=== PATIENT | male | born 1995 | race Caucasian/White ===

== ENCOUNTER 2023-07-23 16:01 | Emergency (ER) | payer OTHER, SELFPAY ==
[2023-07-23 16:13] VITALS: BP 139/73; PULSE 75; RESP 18; TEMP 36.2; O2SAT 94; BMI 30.3
--- NOTE | 2023-07-23 19:46 | ED_ITS ---
HPI - Head Injury General Chief complaint: Head Injury Stated complaint: hid head t-2, lingering headache Time Seen by Provider: 07/23/23 19:21 Source: patient Mode of arrival: ambulatory Limitations: no limitations History of Present Illness HPI Narrative: Patient is a 27-year-old male who presents emergency department for evaluation of an intermittent mild headache. He reports 2 days ago he was putting away gr oceries he bent over and upon standing up he accidentally struck the top of his head on the freezer door. He denies any loss of consciousness. He denies any vision changes, dizziness, lightheadedness, neck pain, chest pain, confusion. Headache is described as mild, 2/10, has been intermittent, has been self- resolving without use of OTC acetaminophen/ibuprofen. He denies use of anticoagulants or known coagulation disorders. He presents emergency department today by advisement of a co-worker to assure there is no serious injury. Related Data Allergies Allergy/AdvReac Type Severity Reaction Status Date / Time No Known Allergies Allergy Verified 07/23/23 16:17 Review of Systems 2 Review of Systems: Yes all other systems are reviewed and are negative PMFSH Past Medical History Attestation statement: The following information was validated with the patient. Source: old records reviewed Physical Exam Vital Signs: Vital Signs: Last Vital Signs Temp 97.2 F 07/23/23 16:13 Pulse 75 07/23/23 16:13 Resp 18 07/23/23 16:13 BP 139/73 07/23/23 16:13 Pulse Ox 94 07/23/23 16:13 O2 Del Method Room Air 07/23/23 16:13 BMI result Body Mass Index 30.3 Appearance: Alert.?Oriented to person, place and time. No acute distress.?Normal affect. Eyes: Pupils equal, round and reactive to light.? EOMI. No nystagmus. No raccoon eyes. ENT: Pharynx normal.??Dentition normal. TM normal bilaterally. No lobato sign. Neck: Normal inspection.? Neck supple.??Full range of motion CVS: Heart sounds normal. Normal heart rate and rhythm.? Pulses normal.?? Respiratory: No respiratory distress.? Lung sounds clear to auscultation bilaterally?? Abdomen: Soft and non-tender. Normoactive bowel sounds. ? Skin: Skin warm and dry.? Normal skin color.? Extremities: No lower extremity edema.? No calf ttp? Neuro: Moves all extremities spontaneously. Sensation intact bilaterally. CN II- XII intact. No focal neuro deficits. Ambulates with normal steady gait. Medical Decision Making Medical Decision Making MDM Narrative: Patient is a 27-year-old male who presents emergency department for evaluation of intermittent mild headache after head injury as per HPI. Has no focal neurological deficits. Based on history and physical examination I clinically I have a low suspicion for fracture, ICH, SDH. Would defer head CT at this time. He was offered acetaminophen/ibuprofen but however declines. Symptoms at this time most consistent with concussion. Discussed strict return precautions. Outpatient follow-up with his primary care provider. All questions were answered. Stable for discharge. Differential Diagnosis Differential Diagnoses: The differential diagnosis associated with the presentation includes (See narrative above) Admission/Observation Consideration of admission/observation: Escalation of care including admission/observation considered (See narrative above) Independent Historian Clinical information obtained from an independent historian. History obtained from or confirmed by: Spouse (Present who confirms history) Tests considered The following testing was considered but not selected: Head CT deferred, see narrative above Prescription Management I considered prescription management with: Pain Medication (Acetaminophen/ibuprofen) Discharge Plan Discharge Clinical Impression: Concussion without loss of consciousness Patient Disposition: Home, Self-Care Instructions: Concussion (ED) Additional Instructions: You can take ibuprofen 200 mg, 3 tablets (600mg) every 6-8 hours as needed for pain, in addition to Tylenol 500 mg, 2 tablets (1,000mg) every 4-6 hours as needed for pain, but not to exceed 3 doses daily (3,000mg).? Follow-up with your primary care provider as needed for persistent symptoms. Return back to emergency department any new or worsening symptoms or concerns. Referrals: Physician,None [Primary Care Provider] - Print Language: [place]arag[place]
[2023-07-23 21:34] VITALS: BP 139/73; PULSE 75; RESP 18; TEMP 36.6; O2SAT 97
== END 2023-07-23 21:36 | disposition home or self-care (01) ==
PROVIDERS: Emergency Provider Emergency Medicine
DX: S06.0X0A Concussion without loss of consciousness, initial encounter (principal); W22.09XA Striking against other stationary object, initial encounter; Y93.9 Activity, unspecified; Y92.9 Unspecified place or not applicable; Y99.9 Unspecified external cause status
CPT/HCPCS: 99282; 99283